=== PATIENT | male | born 1940 | race Caucasian/White ===

== ENCOUNTER 2020-05-08 17:49 | Emergency (ER) | payer MEDICARE, OTHER ==
--- NOTE | 2020-05-08 18:37 | EDM.PDOC ---
ED HPI GENERAL MEDICAL PROBLEM - General Chief Complaint: Lower Extremity Injury/Pain Stated Complaint: BLOOD CLOT IN BOTH LEGS Time Seen by Provider: 05/08/20 18:31 Source of Information: Reports: Patient History Limitations: Reports: No Limitations - History of Present Illness INITIAL COMMENTS - FREE TEXT/NARRATIVE: Patient presents out of concern for development of blood clots in his legs. He and his began a car trip from [place], [place] to this area 6 days ago. Over the last day or 2, his legs have become more painful, swollen, tense. They contacted their medical practitioners back home who recommended they come in and be evaluated for DVT. He has no history of blood clots in any situation. No other recent illnesses. No changes in medication. Onset: Gradual Duration: Day(s): (6) Location: Reports: Lower Extremity, Left, Lower Extremity, Right Quality: Reports: Dull, Throbbing Severity: Moderate Improves with: Reports: None Worsens with: Reports: Movement Context: Reports: Other (Minimal activity) Associated Symptoms: Reports: No Other Symptoms - Related Data Allergies Allergy/AdvReac Type Severity Reaction Status Date / Time No Known Allergies Allergy Verified 05/08/20 18:09 Home Meds: Home Meds Gabapentin [Neurontin] 100 mg PO BID 05/08/20 [History] Lisinopril/Hydrochlorothiazide [Lisinopril-Hctz 20-12.5 mg Tab] 0.5 tab PO DAILY 05/08/20 [History] Tamsulosin HCl [Flomax] 0.4 mg PO DAILY 05/08/20 [History] Past Medical History HEENT History: Reports: Impaired Vision Cardiovascular History: Reports: Hypertension Gastrointestinal History: Reports: None Genitourinary History: Reports: Other (See Below) Other Genitourinary History: frequency Musculoskeletal History: Reports: Arthritis, Back Pain, Chronic Neurological History: Reports: None Endocrine/Metabolic History: Reports: Obesity/BMI 30+ - Infectious Disease History Infectious Disease History: Reports: Chicken Pox - Past Surgical History Head Surgeries/Procedures: Reports: None HEENT Surgical History: Reports: Cataract Surgery Cardiovascular Surgical History: Reports: None GI Surgical History: Reports: Hernia, Abdominal, Hernia, Inguinal Endocrine Surgical History: Reports: None Neurological Surgical History: Reports: Laminectomy Musculoskeletal Surgical History: Reports: Hip Replacement, Knee Replacement, Shoulder Surgery Dermatological Surgical History: Reports: None Social & Family History - Tobacco Use Smoking Status *Q: Former Smoker Used Tobacco, but Quit: Yes Month/Year Tobacco Last Used: 1992 Second Hand Smoke Exposure: No - Caffeine Use Caffeine Use: Reports: None - Alcohol Use Days Per Week of Alcohol Use: 2 Number of Drinks Per Day: 2 Total Drinks Per Week: 4 - Recreational Drug Use Recreational Drug Use: No Review of Systems - Review of Systems Review Of Systems: Comprehensive ROS is negative, except as noted in HPI. ED EXAM, GENERAL - Physical Exam Exam: See Below Free Text/Narrative:: This is an adult male interviewed in bed 5. He appears composed. Exam Limited By: No Limitations General Appearance: Alert, No Apparent Distress Neck: Normal Inspection Respiratory/Chest: Lungs Clear Cardiovascular: Regular Rate, Rhythm GI/Abdominal: Normal Bowel Sounds, Soft, Non-Tender Extremities: Slow Capillary Refill, Other (Bilateral leg edema, worse in the right leg.). No: Increased Warmth, Pallor, Redness Neurological: Alert, No Motor/Sensory Deficits Psychiatric: Normal Affect Course - Vital Signs Last Recorded V/S: Last Vital Signs Temp 36.3 C 05/08/20 18:12 Pulse 78 05/08/20 20:40 Resp 16 05/08/20 18:12 BP 170/88 H 05/08/20 20:40 Pulse Ox 98 05/08/20 20:40 - Orders/Labs/Meds Labs: Laboratory Tests 05/08/20 05/08/20 05/08/20 Range/Units 18:47 18:47 18:47 WBC 7.8 (4.5-11.0) K/uL RBC 3.94 L (4.30-5.90) M/uL Hgb 12.5 (12.0-15.0) g/dL Hct 39.5 L (40.0-54.0) % MCV 100 H (80-98) fL MCH 32 H (27-31) pg MCHC 32 (32-36) % Plt Count 171 (150-400) K/uL Neut % (Auto) 69 H (36-66) % Lymph % (Auto) 18 L (24-44) % Saline % (Auto) 10 H (2-6) % Eos % (Auto) 2 (2-4) % Baso % (Auto) 1 (0-1) % PT 10.3 (9.5-12.0) sec INR 0.94 (0.80-1.20) Sodium 141 (140-148) mmol/L Potassium 4.4 (3.6-5.2) mmol/L Chloride 106 (100-108) mmol/L Carbon Dioxide 31 (21-32) mmol/L Anion Gap 4.3 L (5.0-14.0) mmol/L BUN 26 H (7-18) mg/dL Creatinine 1.3 (0.8-1.3) mg/dL Est Cr Clr Drug Dosing 55.33 mL/min Estimated GFR (MDRD) 54 L (>60) Glucose 110 H (74-106) mg/dL Calcium 8.9 (8.5-10.1) mg/dL Meds: Medications Discontinued Medications Generic Name Dose Route Start Last Admin Trade Name Freq PRN Reason Stop Dose Admin Acetaminophen 650 mg 05/08/20 22:20 05/08/20 22:29 Tylenol PO 05/08/20 22:21 650 mg NOW ONE Administration Enoxaparin Sodium 100 mg 05/08/20 20:10 05/08/20 20:44 Lovenox SUBCUT 05/08/20 20:11 100 mg ONETIME ONE Administration Sodium Chloride 100 mls @ 3 mls/sec 05/08/20 21:15 05/08/20 21:23 Normal Saline IV 3 mls/sec ASDIRECTED BRIANA Administration Iopamidol 100 ml 05/08/20 21:15 05/08/20 21:23 Isovue-370 (76%) IV 100 ml . DIRECTED BRIANA Administration Sodium Chloride 10 ml 05/08/20 21:09 05/08/20 21:23 Saline Flush FLUSH 10 ml ASDIRECTED PRN Administration Keep Vein Open - Re-Assessments/Exams Free Text/Narrative Re-Assessment/Exam: 05/09/20 03:54 Bilateral venous ultrasounds were positive for DVT all the way into the thighs. I reviewed this with the patient and he also talked about some chest discomfort and shortness of breath which is developed gradually over several months as well. Given the identified clots in the legs and his chest symptoms, CT angiogram of the chest will be obtained to look for pulmonary emboli. The scan was negative for PE. He was given 100 mg of Lovenox as a single injection tonight. He was sent with a prescription for rivaroxaban 15 mg, 60 tablets. He will need to arrange follow-up with his primary care provider on return to [place]. We discussed elevating the legs as much as possible to reduce swelling and discomfort. He was discharged in stable condition. Reasons to return to emergency department reviewed. Departure - Departure Time of Disposition: 23:33 Disposition: Home, Self-Care 01 Condition: Good Clinical Impression: DVT, bilateral lower limbs Qualifiers: Affected thrombotic vein of extremity: unspecified vein of extremity Chronicity: acute Qualified Code(s): I82.403 - Acute embolism and thrombosis of unspecified deep veins of lower extremity, bilateral Clinical Impression: (Ruled Out): DVT of axillary vein, acute bilateral - Discharge Information Instructions: Deep Vein Thrombosis Referrals: PCP,None [Primary Care Provider] - Forms: ED Department Discharge Additional Instructions: Start rivaroxaban today, Tuesday, 09 May. Elevate legs as much as possible to reduce pain and swelling. Contact your primary care physician tomorrow to arrange a follow-up care when you return to [place]. Return to ER if feeling worse in any way prior to that time. Sepsis Event Note (ED) - Evaluation Sepsis Screening Result: No Definite Risk - Focused Exam Vital Signs: Vital Signs Temp Pulse Resp BP Pulse Ox 05/08/20 20:40 78 170/88 H 98 05/08/20 18:12 36.3 C 80 16 139/76 95 05/08/20 18:05 36.3 C 80 16 139/76 95
--- NOTE | 2020-05-08 20:06 | CRLUS ---
INDICATION: Leg pain and swelling TECHNIQUE: A compression venous ultrasound exam was performed of both lower extremities using romeo scale imaging, color Doppler and spectral Doppler analysis. FINDINGS: Within the right lower extremity there is thrombus seen from the proximal femoral vein to the peroneal vein. There is thrombus on the left from the common femoral vein to the peroneal vein. Normal compressibility and flow within the right common femoral vein, deep femoral vein. IMPRESSION: 1. Extensive deep venous thrombus. Thrombus is seen in the right proximal femoral vein to peroneal vein. Deep venous thrombus within the left lower extremity from the common femoral vein to the peroneal vein. Results called to [facility] for Dr. Conte on 05/08/2020 at 8pm. Dictated by Siobhan Randle MD @ May 08 2020 7:56PM Signed by Dr. Siobhan Randle @ May 08 2020 8:04PM
[2020-05-08] MEDS ORDERED: Enoxaparin 100 MG/1 ML Syringe SUBCUT ONE (20:10)
[2020-05-08] MEDS ORDERED: Sodium Chloride 0.9% 10 ML Syringe FLUSH PRN (21:09)
[2020-05-08] MEDS ORDERED: Sodium Chloride 0.9% 100 ML IV SCH (21:15)
[2020-05-08] MEDS ORDERED: Iopamidol 755 Mg/ML 100 ML Bottle IV SCH (21:15)
--- NOTE | 2020-05-08 21:54 | CRLCT ---
INDICATION: Chest pain and dyspnea. COMPARISON: None available TECHNIQUE: CT examination of the chest was performed with the uneventful intravenous administration of 100 cc of Isovue 370 while 2 mm thick axial sections were obtained through the pulmonary arteries. Please note that all CT scans at this facility use dose modulation, iterative reconstruction, and/or weight-based dosing when appropriate to reduce radiation dose to as low as reasonably achievable. FINDINGS: : There is no sign of pulmonary embolism, with normal enhancement and branching of the pulmonary arteries. There is mild atelectasis of the left lung base related to mild eventration of the left hemidiaphragm. The lungs are otherwise clear. There is no sign of mediastinal or hilar mass or adenopathy. There is minimal proximal LAD coronary calcifications. The heart is otherwise normal in appearance for the patient`s age, as are the aorta and other ascending great vessels. There is no sign of supraclavicular or axillary mass or adenopathy. The visualized superior liver, spleen, pancreas, kidneys, and adrenals are normal in appearance. The osseous structures are normal in appearance for the patient`s age. IMPRESSION: No sign of pulmonary embolism. Mild atelectasis of the left lung base related to mild eventration of the left hemidiaphragm. Please note that all CT scans at this facility use dose modulation, iterative reconstruction, and/or weight-based dosing when appropriate to reduce radiation dose to as low as reasonably achievable. Dictated by Gee Maki MD @ May 08 2020 9:49PM Signed by Dr. Gee Maki @ May 08 2020 9:52PM
[2020-05-08] MEDS ORDERED: Acetaminophen 325 MG Tab PO ONE (22:20)
== END 2020-05-08 23:50 | disposition home or self-care (01) ==
LOC: JP.ED 17:49
DX: I82.413 Acute embolism and thrombosis of femoral vein, bilateral (principal); I82.453 Acute embolism and thrombosis of peroneal vein, bilateral; I10 Essential (primary) hypertension; E66.9 Obesity, unspecified; Z87.891 Personal history of nicotine dependence; Z68.32 Body mass index [BMI] 32.0-32.9, adult; Z79.899 Other long term (current) drug therapy
CPT/HCPCS: 36415; 71275; 80048; 85025; 85610; 93970; 96372; 99285; A9270; J1650; Q9967; 99283